=== PATIENT | female | born 1970 | race African-American/Black ===

== ENCOUNTER 2017-07-10 17:12 | Emergency (ER) | payer MEDICARE, MEDICAID ==
--- NOTE | 2017-07-10 20:11 | RAD ---
RADIOGRAPH RIGHT KNEE 4 VIEWS: 07/10/17 HISTORY: 47-year-old female with spontaneous onset of nontraumatic right knee pain. FINDINGS: There is small suprapatellar joint effusion. There is soft tissue edema directly posterior to the pa tellar tendon. There are tiny osteophytes at the patellofemoral compartment. There are small osteoph ytes at the medial and lateral compartments, without joint space narrowing. There are enthesophytes at the medial and lateral tibial spines. No fracture or dislocation. No destructive osseous lesion. IMPRESSION: 1. Mild tricompartmental osteoarthrosis. 2. Small joint effusion. POS: [facility]
[2017-07-10] MEDS ORDERED: Acetaminophen 325 MG TAB ONE (20:18)
[2017-07-10 20:26] LABS: #Basophils 0.1 thou/uL (0.0-0.2); #Eosinphils 0.2 thou/uL (0.0-0.7); #Lymphocytes 3.3 thou/uL (1.20-3.40); #Monocytes 0.6 thou/uL (0.11-0.59); #Neutrophils 3.9 thou/uL (1.40-6.50); %Basophils 1.1 % (0.0-1.0); %Eosinophils 2.9 % (0.0-10.0); %Lymphocytes 40.7 % (21.0-51.0); %Monocytes 7.3 % (0.0-10.0); Hematocrit 39.3 % (36.0-47.0); Mean Platelet Volume 6.6 fL (7.4-10.4); Red Blood Cell (RBC) Count 4.13 mill/uL (4.20-5.40); White Blood Cell (WBC) Count 8.2 thou/uL (4.8-10.8)
[2017-07-10 20:38] LABS: PTT 27.6 SEC (22.9-36.1); Prothrombin Time 13.5 SEC (12.0-14.7)
[2017-07-10 20:50] LABS: ALT (SGPT) 11 U/L (8-55); AST (SGOT) 8 U/L (5-34); Alkaline Phosphatase 104 U/L (40-150); Anion Gap 8 mmol/L (10-20); BUN (Urea Nitrogen) 14 mg/dL (7.0-18.7); Bilirubin, Total 0.3 mg/dL (0.2-1.2); Calc. Creatinine Clearance 0 mL/min (70-130); Calcium 9.5 mg/dL (7.8-10.44); Carbon Dioxide 30 mmol/L (22-29); Chloride 108 mmol/L (98-107); Estimated GFR-MDRD Greater than 90; Globulin 2.9 g/dL (2.4-3.5); Protein, Total 6.6 g/dL (6.0-8.3)
--- NOTE | 2017-07-10 21:47 | ULT ---
ULTRASOUND WITH DOPPLER DUPLEX VENOUS LOWER EXTREMITY RIGHT: 07/10/17 HISTORY: 47-year-old female with right lower extremity pain. TECHNIQUE: Color flow Doppler, spectral waveform analysis of pulsed Doppler, and matthew-scale imaging with compre ssion and augmentation, were used to evaluate the right common femoral, femoral, popliteal, posterio r tibial, and superficial femoral, veins; and the proximal portions of the profunda femoral and grea ter saphenous, veins. FINDINGS: There is normal compressibility, demonstration of blood flow by color Doppler and pulsed Doppler, an d response to augmentation, in all interrogated veins. IMPRESSION: Negative. No deep vein thrombosis in the right lower extremity. daniela [] POS: [facility]
== END 2017-07-10 21:28 | disposition home or self-care (01) ==
LOC: ERS 17:12
DX: M25.561 Pain in right knee (principal); E11.9 Type 2 diabetes mellitus without complications; E78.5 Hyperlipidemia, unspecified; I10 Essential (primary) hypertension; J44.9 Chronic obstructive pulmonary disease, unspecified; F41.9 Anxiety disorder, unspecified; F17.210 Nicotine dependence, cigarettes, uncomplicated
CPT/HCPCS: 36415; 80053; 85025; 85610; 85730

== ENCOUNTER 2017-08-11 14:15 | Outpatient (CLI) | payer MEDICARE, MEDICAID ==
--- NOTE | 2017-08-11 16:03 | RAD ---
LUMBAR SPINE THREE VIEWS: History: Low back pain. FINDINGS/IMPRESSION: Comparison is made with exam of 06-27-11. Mild degenerative changes are present. No fracture, subluxation, or bony destruction is identified. POS: [facility]
== END 2017-08-11 14:16 | disposition home or self-care (01) ==
LOC: RAD-FRANK 14:15
DX: M54.5 Low back pain (principal)
CPT/HCPCS: 72100

== ENCOUNTER 2017-12-22 09:46 | Emergency (ER) | payer MEDICARE, MEDICAID ==
[2017-12-22] MEDS ORDERED: Ketorolac Tromethamine 60 MG/2 ML VIAL ONE (10:30)
[2017-12-22] MEDS ORDERED: Dexamethasone 4 mg/ml Vial ONE (10:30)
--- NOTE | 2017-12-22 11:45 | RAD ---
RADIOGRAPH LUMBAR SPINE 3 VIEWS: DATE: 12/22/17. HISTORY: A 47-year-old female with low back pain and lumbar radiculopathy. COMPARISON: 08/11/17. FINDINGS: There are 5 lumbar-type vertebrae. Vertebral body heights are maintained. No scoliosis. High-grade DJD of facets at lower levels, especially at L5-S1 bilaterally. Minimal grade I anterolisthesis of L5 on S1. Moderate disk space narrowing at L5-S1. Mild disk space narrowing at L4-5 and L3-4. Pedi cles appear to be grossly intact. DJD at bilateral SI joints, right greater than left, with right-si ded vacuum joint phenomenon. No interval change overall. IMPRESSION: 1. Lumbar spondylosis, especially with high-grade facet osteoarthrosis at lower levels. 2. Degenerative changes at bilateral sacroiliac joints. 3. No interval change since 08/11/17. LISA [] POS: [facility]
== END 2017-12-22 11:30 | disposition home or self-care (01) ==
LOC: ERS 09:46
DX: M54.5 Low back pain (principal); M19.90 Unspecified osteoarthritis, unspecified site; E11.40 Type 2 diabetes mellitus with diabetic neuropathy, unspecified; I10 Essential (primary) hypertension; E78.5 Hyperlipidemia, unspecified; J44.9 Chronic obstructive pulmonary disease, unspecified; F41.9 Anxiety disorder, unspecified; F17.210 Nicotine dependence, cigarettes, uncomplicated; Z79.82 Long term (current) use of aspirin; Z79.899 Other long term (current) drug therapy
CPT/HCPCS: 72100; 96372; J1100; J1885

== ENCOUNTER 2018-02-24 22:29 | Emergency (ER) | payer MEDICARE, MEDICAID ==
[2018-02-24] MEDS ORDERED: Lorazepam 2 MG/ML VIAL ONE (22:54)
--- NOTE | 2018-02-24 23:05 | CT ---
CT OF THE BRAIN WITHOUT CONTRAST 02/24/18 COMPARISON: 12/07/15 HISTORY: Seizure and collapse. TECHNIQUE: Multiple contiguous axial images were obtained in a CT of the brain without contrast. FINDINGS: The brain is normal in morphology and attenuation without focal lesions or confluent areas of infarct ion. There is no evidence of hydrocephalus, intracranial hemorrhage or extra-axial fluid collection. The calvarium and overlying soft tissues are unremarkable. The visualized paranasal sinuses and masto id air cells are well aerated. IMPRESSION: No evidence of acute intracranial abnormality. POS: [facility]
--- NOTE | 2018-02-24 23:08 | CT ---
CT OF THE CERVICAL SPINE WITHOUT CONTRAST 02/24/18 COMPARISON: None. HISTORY: Syncope and collapse with neck pain. TECHNIQUE: Multiple contiguous axial images are obtained in a CT of the cervical spine without contrast. Sagitta l and coronal reformats were performed. FINDINGS: The vertebral bodies demonstrate normal height and alignment without acute fracture or subluxation. M ild degenerative changes are seen in the upper cervical spine. No prevertebral soft tissue swelling i s seen. The posterior facets are well aligned. Normal alignment of the skull base with the cervical spine is seen. IMPRESSION: No evidence of acute osseous abnormality of the cervical spine. POS: [facility]
[2018-02-24] MEDS ORDERED: Ketorolac Tromethamine 30 MG/ML VIAL ONE (23:18)
[2018-02-24 23:36] LABS: #Basophils 0.1 thou/uL (0.0-0.2); #Eosinphils 0.2 thou/uL (0.0-0.7); #Lymphocytes 2.3 thou/uL (1.20-3.40); #Monocytes 0.6 thou/uL (0.11-0.59); #Neutrophils 6.5 thou/uL (1.40-6.50); %Basophils 0.8 % (0.0-1.0); %Eosinophils 1.8 % (0.0-10.0); %Lymphocytes 23.8 % (21.0-51.0); %Monocytes 5.9 % (0.0-10.0); %Neutrophils 67.8 % (42.0-75.0); Hemoglobin 13.2 g/dL (12.0-16.0); Mean Corpuscular Hemoglobin 29.9 pg (27.0-31.0); Mean Corpuscular Volume 90.6 fl (81.0-99.0); Platelet Count 312 thou/uL (130-400); Red Blood Cell (RBC) Count 4.41 mill/uL (4.20-5.40); White Blood Cell (WBC) Count 9.6 thou/uL (4.8-10.8)
[2018-02-25 00:29] LABS: CKMB 0.5 ng/mL (0-6.6); Troponin I Less than 0.010 ng/mL (< 0.028)
[2018-02-25 00:29] LABS: ALT (SGPT) 17 U/L (8-55); AST (SGOT) 15 U/L (5-34); Albumin 3.9 g/dL (3.5-5.0); Alkaline Phosphatase 124 U/L (40-150); Anion Gap 11 mmol/L (10-20); BUN (Urea Nitrogen) 11 mg/dL (7.0-18.7); Bilirubin, Total 0.4 mg/dL (0.2-1.2); Calc. Creatinine Clearance 0 mL/min (70-130); Carbon Dioxide 30 mmol/L (22-29); Chloride 100 mmol/L (98-107); Estimated GFR-MDRD 90; Globulin 2.9 g/dL (2.4-3.5); Glucose 186 mg/dL (70-105); Potassium 3.5 mmol/L (3.5-5.1); Protein, Total 6.8 g/dL (6.0-8.3); Sodium 137 mmol/L (136-145)
--- NOTE | 2018-02-26 11:48 | EKG ---
Test Reason : Blood Pressure : / mmHG Vent. Rate : 109 BPM Atrial Rate : 109 BPM P-R Int : 156 ms QRS Dur : 094 ms QT Int : 352 ms P-R-T Axes : 072 047 061 degrees QTc Int : 474 ms Sinus tachycardia Otherwise normal ECG Confirmed by TRACEY HILTON ([id number]), acquisitions editor ANASTASIYA MELTON ([id number]) on 02/26/2018 11:47:22 AM Referred By: Confirmed By:TRACEY HILTON
== END 2018-02-25 00:55 | disposition home or self-care (01) ==
LOC: ERS 22:29
DX: R56.9 Unspecified convulsions (principal); F43.0 Acute stress reaction; E11.40 Type 2 diabetes mellitus with diabetic neuropathy, unspecified; E78.5 Hyperlipidemia, unspecified; I10 Essential (primary) hypertension; J44.9 Chronic obstructive pulmonary disease, unspecified; F41.9 Anxiety disorder, unspecified; F17.210 Nicotine dependence, cigarettes, uncomplicated; Z79.899 Other long term (current) drug therapy; Z79.84 Long term (current) use of oral hypoglycemic drugs; Z79.82 Long term (current) use of aspirin
CPT/HCPCS: 36415; 70450; 72125; 80053; 82553; 84146; 84484; 85025; 93005; 96372; 96374; J1885; J2060

== ENCOUNTER 2018-05-27 09:21 | Outpatient (CLI) | payer MEDICARE, MEDICAID | END 2018-05-27 09:22 | disposition home or self-care (01) | LOC: BICMRI 09:21 | PROVIDERS: ATTEND Anesthesiology | DX: M47.26 Other spondylosis with radiculopathy, lumbar region (principal); M54.5 Low back pain; M51.24 Other intervertebral disc displacement, thoracic region; M51.16 Intervertebral disc disorders with radiculopathy, lumbar region; S34.103A Unspecified injury to L3 level of lumbar spinal cord, initial encounter | CPT/HCPCS: 72148 ==

== ENCOUNTER 2018-06-24 10:57 | Outpatient (CLI) | payer MEDICARE, MEDICAID | END 2018-06-24 10:58 | disposition home or self-care (01) | LOC: BICMAMMO 10:57 | PROVIDERS: ATTEND Internal Medicine | DX: Z12.31 Encounter for screening mammogram for malignant neoplasm of breast (principal) | CPT/HCPCS: 77063; 77067 ==

== ENCOUNTER 2018-09-19 18:59 | Emergency (ER) | payer MEDICARE, MEDICAID ==
--- NOTE | 2018-09-19 20:07 | RAD ---
RIGHT LITTLE FINGER: HISTORY: Injury to finger. FINDINGS: There are no signs of fracture or dislocation. There is some minimal arthritic change of the DIP sarahy nt. IMPRESSION: No evidence of fracture. POS: [facility]
== END 2018-09-19 19:57 | disposition home or self-care (01) ==
LOC: SCSER 18:59
DX: S63.616A Unspecified sprain of right little finger, initial encounter (principal); E11.40 Type 2 diabetes mellitus with diabetic neuropathy, unspecified; E78.5 Hyperlipidemia, unspecified; I10 Essential (primary) hypertension; J44.9 Chronic obstructive pulmonary disease, unspecified; F41.9 Anxiety disorder, unspecified; F17.210 Nicotine dependence, cigarettes, uncomplicated; X58.XXXA Exposure to other specified factors, initial encounter

== ENCOUNTER 2019-01-17 16:34 | Emergency (ER) | payer MEDICARE, MEDICAID ==
[~2019-01-17 16:34] MED LIST: ISOVUE-370 76%-LOCM 1 ML ONE
[2019-01-17] MEDS ORDERED: Ondansetron ODT 4 MG TAB ONE (17:05)
[2019-01-17 17:36] LABS: Hemoglobin 13.4 g/dL (12.0-16.0); Mean Corpuscular HGB CONC 32.4 g/dL (32.0-36.0); Mean Corpuscular Hemoglobin 30.1 pg (27.0-31.0); Mean Corpuscular Volume 92.9 fL (78.0-98.0); Mean Platelet Volume 7.2 fL (7.4-10.4); Platelet Count 343 thou/uL (130-400); RBC Distribution Width 12.6 % (11.5-14.5); Red Blood Cell (RBC) Count 4.46 mill/uL (4.20-5.40); White Blood Cell (WBC) Count 13.5 thou/uL (4.8-10.8)
[2019-01-17 17:51] LABS: Band 2 % (5-11); Lymphocytes 14 % (21-51); MDiff Complete? YES; Monocytes 2 % (0-10); Neutrophil 79 % (42-75); Platelet Morphology Comment Appears Adequate; RBC Morphology Normal; Reactive Lymphocytes 3 % (0-10)
[2019-01-17 17:54] LABS: ALT (SGPT) 14 U/L (8-55); AST (SGOT) 10 U/L (5-34); Albumin 4.3 g/dL (3.5-5.0); Alkaline Phosphatase 109 U/L (40-150); Anion Gap 12 mmol/L (10-20); BUN (Urea Nitrogen) 8 mg/dL (7.0-18.7); Bilirubin, Total 0.4 mg/dL (0.2-1.2); Calc. Creatinine Clearance 0 mL/min (70-130); Calcium 10.4 mg/dL (7.8-10.44); Carbon Dioxide 29 mmol/L (22-29); Chloride 102 mmol/L (98-107); Estimated GFR-MDRD Greater than 90; Globulin 2.8 g/dL (2.4-3.5); Glucose 87 mg/dL (70-105); Lipase 6 U/L (8-78); Potassium 3.9 mmol/L (3.5-5.1); Protein, Total 7.1 g/dL (6.0-8.3); Sodium 139 mmol/L (136-145)
[2019-01-17 19:35] LABS: Bilirubin Negative (Negative); Blood, Urine Negative (Negative); Clarity CLEAR (Clear); Glucose, Urine (Dipstick) Negative (Negative); Leukocyte Negative (Negative); Nitrite Negative (Negative); Protein, Urine (Dipstick) Negative (Neg-Trace); Urobilinogen 0.2 mg/dL (0.2-1.0); pH, Urine 6.5 (5.0-9.0)
[2019-01-17] MEDS ORDERED: Ondansetron PF 4 MG/2 ML Vial ONE (22:09)
[2019-01-17] MEDS ORDERED: Morphine 4 MG/ML VIAL ONE (22:09)
[2019-01-17] MEDS ORDERED: Albuterol Sulfate 2.5 mg/0.5 ml Neb ONE (22:26)
--- NOTE | 2019-01-17 23:01 | CT ---
CT of the abdomen and pelvis: 01/17/2019 COMPARISON: None HISTORY: Abdominal pain and vomiting TECHNIQUE: Axial CT imaging at 5 mm intervals through the abdomen and pelvis with IV contrast. Ashby l reformatted imaging obtained FINDINGS: The visualized lung bases appear unremarkable. No free intraperitoneal air or fluid. The hepatic parenchyma is hypodense suggesting steatosis. Limited assessment of the gallbladder appea rs grossly unremarkable. The spleen, pancreas, and adrenal glands appear unremarkable as do bilateral kidneys. There is diverticulosis of the sigmoid colon. The appendix appears unremarkable. There is sigmoid colonic wall thickening versus underdistention. A mild degree of sigmoid diverticuli tis cannot be excluded. No evidence for bowel obstruction. There is mild scattered atherosclerotic calcification of the abdominal aorta. Mildly prominent nodes are seen along the external iliac chain bilaterally. No definite lymphadenopat hy is appreciated within the abdomen or pelvis. The osseous structures of the abdomen and pelvis demonstrate degenerative change of the lower lumbar spine facet joints and bilateral sacroiliac joints. No worrisome lytic or blastic bone lesion. IMPRESSION: Sigmoid diverticulosis. Mild sigmoid colonic wall thickening may be on the basis of mild diverticulitis and/or underdistention. No evidence for bowel obstruction or free intraperitoneal air.
== END 2019-01-17 23:45 | disposition home or self-care (01) ==
LOC: ERS 16:34
DX: K57.32 Diverticulitis of large intestine without perforation or abscess without bleeding (principal); E11.9 Type 2 diabetes mellitus without complications; E78.5 Hyperlipidemia, unspecified; I10 Essential (primary) hypertension; J44.9 Chronic obstructive pulmonary disease, unspecified; F17.210 Nicotine dependence, cigarettes, uncomplicated; Z79.899 Other long term (current) drug therapy
CPT/HCPCS: 36415; 36416; 74177; 80053; 81003; 82274; 83690; 85025; 93005; 96361; 96374; 96375; J2270; J2405; J7611; Q0162; Q9966

== ENCOUNTER 2019-02-28 06:47 | Day surgery (SDC) | payer MEDICARE, MEDICAID ==
[2019-02-25 09:41] VITALS: BMI 40.7
--- NOTE | 2019-02-28 10:37 | OP ---
DATE OF PROCEDURE: 02/28/2019 PROCEDURE PERFORMED: Esophagogastroduodenoscopy with biopsy and diagnostic colonoscopy. PREOPERATIVE DIAGNOSES: Nausea, vomiting, gastroesophageal reflux disease, and prior diverticulitis of the colon. DESCRIPTION OF PROCEDURE: An informed consent was obtained from the patient. She was sedated with total intravenous anesthesia. The bite block was placed, and the endoscope was advanced easily to the second portion of the duodenum and retroflexion was performed in the stomach. The esophagus had an irregular Z-line with a possible 0.5 cm segment of Graham esophagus. This was biopsied to rule out Graham esophagus. The stomach had diffuse erythematous, moderately severe gastritis in the antrum. Biopsies were obtained to rule out H. pylori. Retroflexed views in the stomach were normal. The pylorus and first and second portions of the duodenum were normal. Biopsies were obtained to rule out celiac disease. The patient was turned around. Rectal exam was performed and was normal. The preparation quality was good. The colonoscope was advanced to the terminal ileum. The mucosa of the terminal ileum was normal. The ileocecal valve and appendiceal orifice were clearly identified. There was moderate diverticulosis in the sigmoid colon. The remainder of the colonic mucosa was normal. Retroflex views in the rectum were normal. IMPRESSION: 1. Erythematous gastritis in the antrum, biopsies obtained to rule out Helicobacter pylori. 2. Irregular Z-line with a possible 0.5 cm segment of Graham esophagus, biopsied. 3. Otherwise normal esophagogastroduodenoscopy. Duodenal biopsies taken to rule out celiac disease. 4. Moderate sigmoid diverticulosis without stigmata of recent diverticulitis or inflammatory changes. 5. Otherwise normal colonoscopy to the terminal ileum. RECOMMENDATIONS: 1. Await histopathology. 2. Repeat colonoscopy in 10 years for colon cancer screening. 3. High-fiber diet. 4. Follow up in GI clinic. Job ID: [id number]
[2019-02-28] MEDS ORDERED: PROPOFOL 200 MG/20 ML VIAL ONE (16:38)
[2019-02-28] MEDS ORDERED: Lidocaine 1% PF 5 ML VIAL ONE (16:38)
== END 2019-02-28 11:01 | disposition home or self-care (01) ==
LOC: SDC 06:47
PROVIDERS: ATTEND Internal Medicine Gastroenterology
PROC: 0DB58ZX Excision of Esophagus, Via Natural or Artificial Opening Endoscopic, Diagnostic (ICD-10-PCS; principal; 2019-02-28)
PROC: 0DB68ZX Excision of Stomach, Via Natural or Artificial Opening Endoscopic, Diagnostic (ICD-10-PCS; 2019-02-28)
PROC: 0DJD8ZZ Inspection of Lower Intestinal Tract, Via Natural or Artificial Opening Endoscopic (ICD-10-PCS; 2019-02-28)
DX: K29.50 Unspecified chronic gastritis without bleeding (principal); K20.9 Esophagitis, unspecified; K31.89 Other diseases of stomach and duodenum; K57.30 Diverticulosis of large intestine without perforation or abscess without bleeding; K21.9 Gastro-esophageal reflux disease without esophagitis; I13.0 Hypertensive heart and chronic kidney disease with heart failure and stage 1 through stage 4 chronic kidney disease, or unspecified chronic kidney disease; E11.22 Type 2 diabetes mellitus with diabetic chronic kidney disease; N18.9 Chronic kidney disease, unspecified; I50.9 Heart failure, unspecified; F41.9 Anxiety disorder, unspecified; J45.909 Unspecified asthma, uncomplicated; E78.00 Pure hypercholesterolemia, unspecified; R56.9 Unspecified convulsions; G47.30 Sleep apnea, unspecified; F17.210 Nicotine dependence, cigarettes, uncomplicated; Z79.4 Long term (current) use of insulin; Z79.82 Long term (current) use of aspirin; Z79.899 Other long term (current) drug therapy
CPT/HCPCS: 36416; 88305; 88312; 88313; J2001; J2704

== ENCOUNTER 2019-03-23 07:38 | Emergency (ER) | payer MEDICARE, MEDICAID ==
[2019-03-23] MEDS ORDERED: Dexamethasone 10 MG/ML VIAL ONE (08:10)
== END 2019-03-23 08:30 | disposition home or self-care (01) ==
LOC: ERS 07:38
DX: M54.32 Sciatica, left side (principal); F41.9 Anxiety disorder, unspecified; E78.5 Hyperlipidemia, unspecified; I10 Essential (primary) hypertension; J44.9 Chronic obstructive pulmonary disease, unspecified; F17.210 Nicotine dependence, cigarettes, uncomplicated; E11.40 Type 2 diabetes mellitus with diabetic neuropathy, unspecified; Z79.899 Other long term (current) drug therapy; Z79.84 Long term (current) use of oral hypoglycemic drugs; Z79.82 Long term (current) use of aspirin; Z79.891 Long term (current) use of opiate analgesic
CPT/HCPCS: 96372; J1100

== ENCOUNTER 2019-04-16 23:21 | Emergency (ER) | payer MEDICARE, MEDICAID | END 2019-04-16 23:57 | disposition home or self-care (01) | LOC: SCSER 23:21 | DX: N76.4 Abscess of vulva (principal); E78.00 Pure hypercholesterolemia, unspecified; E11.40 Type 2 diabetes mellitus with diabetic neuropathy, unspecified; I10 Essential (primary) hypertension; J44.9 Chronic obstructive pulmonary disease, unspecified; F41.9 Anxiety disorder, unspecified; Z71.6 Tobacco abuse counseling; F17.210 Nicotine dependence, cigarettes, uncomplicated; Z79.82 Long term (current) use of aspirin; Z79.84 Long term (current) use of oral hypoglycemic drugs; Z79.899 Other long term (current) drug therapy | CPT/HCPCS: 99406 ==

== ENCOUNTER 2019-04-21 19:34 | Emergency (ER) | payer MEDICARE, MEDICAID ==
[2019-04-21] MEDS ORDERED: Lidocaine 1% w/Epinephrine 1:100K 20 ML VIAL ONE (20:15)
== END 2019-04-21 20:45 | disposition home or self-care (01) ==
LOC: SCSER 19:34
DX: N75.1 Abscess of Bartholin's gland (principal); E11.40 Type 2 diabetes mellitus with diabetic neuropathy, unspecified; I10 Essential (primary) hypertension; G40.909 Epilepsy, unspecified, not intractable, without status epilepticus; J44.9 Chronic obstructive pulmonary disease, unspecified; E78.5 Hyperlipidemia, unspecified; F41.9 Anxiety disorder, unspecified; F17.210 Nicotine dependence, cigarettes, uncomplicated; Z79.899 Other long term (current) drug therapy; Z79.84 Long term (current) use of oral hypoglycemic drugs
CPT/HCPCS: 56420; J2001

== ENCOUNTER 2020-07-31 13:49 | Outpatient (CLI) | payer MEDICARE, MEDICAID ==
--- NOTE | 2020-07-31 15:57 | MMO ---
Bilateral MAMMO Bilat Screen [facility]. CLINICAL HISTORY: Patient is 50 years old and is seen for screening. The patient has no family history of breast cancer. The patient has no personal history of cancer. VIEWS: The views performed were: bilateral craniocaudal with tomosynthesis and bilateral mediolateral oblique with tomosynthesis. FILMS COMPARED: The present examination has been compared to prior imaging studies performed at [facility] on 04/19/2015, 04/29/2016, 05/06/2017 and 06/24/2018. This study has been interpreted with the assistance of computer-aided detection. MAMMOGRAM FINDINGS: There are scattered fibroglandular densities. There are no suspicious masses, suspicious calcifications, or new areas of architectural distortion. IMPRESSION: THERE IS NO MAMMOGRAPHIC EVIDENCE OF MALIGNANCY. A ROUTINE FOLLOW-UP MAMMOGRAM IN 1 YEAR IS RECOMMENDED. THE RESULTS OF THIS EXAM WERE SENT TO THE PATIENT. ACR BI-RADS Category 1 - Negative MAMMOGRAPHY NOTE: 1. A negative mammogram report should not delay a biopsy if a dominant of clinically suspicious mass is present. 2. Approximately 10% to 15% of breast cancers are not detected by mammography. 3. Adenosis and dense breasts may obscure an underlying neoplasm. Reported by: JUANY RUCKER MD Electonically Signed: [id number]
--- NOTE | 2020-07-31 16:12 | MRI ---
Exam: MRI cervical spine without contrast HISTORY: Cervical radiculopathy.. COMPARISON: 11/20/2014 FINDINGS: Motion degradation multiple sequences. Appropriate T1 marrow signal intensity of the cervical vertebra. Cervical spine vertebral body height is maintained. There is no fracture. No significant STIR hyperintensity to suggest vertebral body edema or ligamentous injury. Straightening of normal cervical lordosis is presumed to be positional The visualized brain parenchyma, cervicomedullary junction, cervical cord and the upper thoracic cord are normal size and signal intensity. C2-C3: Central disc herniation. Mild central canal stenosis. Patent bilateral neural foramina C3-C4: Disc desiccation with mild loss of disc space height. Broad-based disc osteophyte complex. Mas s effect upon the cervical cord. Moderate central canal stenosis. Mild bilateral neural foraminal narrowing. C4-C5: Adequate disc hydration. Central/left paracentral disc herniation with mild central canal sten osis. Mild right neural foraminal narrowing. Patent left neural foramen. C5-C6: Central disc herniation effaces the subarachnoid space. There is mass effect and deformity the cervical cord. Moderate central canal stenosis. Mild right and left neural foraminal narrowing C6-C7: Broad-based discussed by complex with a right paracentral component. There is mass effect upon the right hemicord. Moderate central canal stenosis. Patent bilateral neural foramina C7-T1: No significant central canal stenosis. Patent bilateral neural foramina IMPRESSION: Multilevel degenerative changes of the cervical spine as detailed above.
--- NOTE | 2020-07-31 16:36 | MRI ---
MR the lumbar spine without contrast INDICATION: Lumbar spondylosis with low back pain COMPARISON: Prior MR the lumbar spine dated May 27, 2018 TECHNIQUE: Multiplanar multisequence MR images were obtained of lumbar spine without IV contrast. FINDINGS: Bone marrow: There is a benign-appearing meningioma within T10. This is stable to the prior. Distal spinal cord and conus: Normal. The conus seen to terminate at L1. Visualized retroperitoneum and paraspinal soft tissues: Normal. Vertebral levels: L5-S1: There is grade 1 anterolisthesis of L5 on S1. There is moderate facet joint degenerative thomas e. There is loss of the normal disc space height. No appreciable central canal or neural foraminal narrowing is evident.. L4-5: There is a broad-based disc bulge with a new central disc protrusion. There is mild narrowing o f the right lateral recess due to the protrusion and facet osteoarthrosis. There is loss of the normal disc signal. There is grade 1 anterolisthesis. There is mild neural foraminal encroachment angela aterally, more pronounced than on the prior exam. L3-4: There is a broad-based bulge with moderate facet joint degenerative change but no appreciable n eural foraminal narrowing. L2-3: No appreciable central canal or neuroforaminal narrowing. L1-L2: No appreciable central canal or neuroforaminal narrowing. T12-L1: No appreciable central canal or neuroforaminal narrowing. There is a stable small central disc protrusion at T11-T12 causing some mild ventral effacement of th e subarachnoid space without definite cord contact. IMPRESSION: 1. New central disc protrusion at L4-5 causing mild narrowing of the right lateral recess. The broad- based disc bulge in addition to facet osteoarthrosis, loss of disc space height and grade 1 anterolisthesis inducing mild bilateral neural foraminal narrowing, slightly more pronounced than on the prior exam. 2. Multilevel spondylosis of the lumbar spine as above
== END 2020-07-31 13:50 | disposition home or self-care (01) ==
LOC: BICMAMMO 13:49
DX: Z12.31 Encounter for screening mammogram for malignant neoplasm of breast (principal); M47.816 Spondylosis without myelopathy or radiculopathy, lumbar region; M51.26 Other intervertebral disc displacement, lumbar region; M51.86 Other intervertebral disc disorders, lumbar region; M43.16 Spondylolisthesis, lumbar region; M48.061 Spinal stenosis, lumbar region without neurogenic claudication; M47.22 Other spondylosis with radiculopathy, cervical region
CPT/HCPCS: 72141; 72148; 77063; 77067

== ENCOUNTER 2021-03-22 13:09 | Outpatient (CLI) | payer MEDICARE, MEDICAID | END 2021-03-22 13:10 | disposition home or self-care (01) | LOC: BICRAD 13:09 | PROVIDERS: ATTEND Nurse Practitioner Family | DX: M47.814 Spondylosis without myelopathy or radiculopathy, thoracic region (principal); M47.816 Spondylosis without myelopathy or radiculopathy, lumbar region; M16.0 Bilateral primary osteoarthritis of hip; M47.818 Spondylosis without myelopathy or radiculopathy, sacral and sacrococcygeal region | CPT/HCPCS: 72072; 72100 ==

== ENCOUNTER 2023-10-20 10:23 | Outpatient (CLI) | payer OTHER, MEDICAID | END 2023-10-20 10:24 | disposition home or self-care (01) | LOC: BICMAMMO 10:23 | PROVIDERS: ATTEND Nurse Practitioner Family | DX: Z12.31 Encounter for screening mammogram for malignant neoplasm of breast (principal); Z13.820 Encounter for screening for osteoporosis; Z78.0 Asymptomatic menopausal state | CPT/HCPCS: 77063; 77067; 77080 ==